=== PATIENT | female | born 1995 | race Hispanic/Latino ===

== ENCOUNTER → 2021-09-14 | Outpatient (CLI) | payer OTHER, MEDICAID ==
[~2021-09-14] MED LIST: ACET-2041 PO; PREN1TAB80 PO
== END | disposition home or self-care (01) ==
LOC: OIH 11:44
PROVIDERS: ATTEND Internal Medicine
DX: M25.562 Pain in left knee (principal); M25.561 Pain in right knee
CPT/HCPCS: 73560